=== PATIENT | male | born 1950 | race Caucasian/White ===

== ENCOUNTER 2019-07-01 18:18 | Emergency (ER) | payer MEDICARE ==
[~2019-07-01 18:18] MED LIST: Rocuronium 100 MG/10 ML MDV ONE
[2019-07-01] MEDS ORDERED: Ketamine 500 mg/10 ML MDV IM ONE (18:30)
[2019-07-01] MEDS ORDERED: propofoL 100 ML IV SCH (18:30)
[2019-07-01] MEDS ORDERED: Etomidate 2 MG/ML 20 ML SDV IVPUSH ONE (18:30)
[2019-07-01] MEDS ORDERED: Sodium Chloride 0.9% 1,000 ML IV ONE (18:41)
--- NOTE | 2019-07-01 18:57 | CR ---
Chest: Portable supine view of the chest was obtained. Comparison: Prior chest x-ray of 01/25/15. Heart size and mediastinum are normal. Endotracheal tube is seen. Tip lies at the lower level of the clavicles. Lungs show no acute parenchymal change. Deformity from old healed left clavicle fracture is noted. Impression: 1. Tip of endotracheal tube at the level of the lower clavicles. 2. Nothing acute is otherwise seen on portable chest x-ray. Diagnostic code #2 Study was dictated in [place] Standard Time
[2019-07-01 19:15] LABS: BLOOD UREA NITROGEN,BUN 20 mg/dL (7.0-18.0); CARBON DIOXIDE,CO2 8.7 mmol/L (21.0-32.0); CHLORIDE,CL 103 mmol/L (98-107); GLUCOSE RANDOM 182 mg/dL (74-106); POTASSIUM,K 4.1 mmol/L (3.5-5.1); SODIUM,NA 143 mmol/L (136-148)
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
[2019-07-01 21:20] VITALS: BP 131/70; PULSE 122
[2019-07-01] MEDS ORDERED: Sodium Chloride 0.9% 10 ML Syringe FLUSH PRN (21:51)
[2019-07-01] MEDS ORDERED: Sodium Chloride 0.9% 10 ML SDV IV PRN (21:51)
[2019-07-01] MEDS ORDERED: Sodium Chloride 0.9% 2.5 ML Syringe FLUSH PRN (21:51)
== END 2019-07-01 22:21 | disposition other institution (70) ==
LOC: MW.ED 18:31
DX: R41.82 Altered mental status, unspecified (principal); I10 Essential (primary) hypertension; E78.00 Pure hypercholesterolemia, unspecified; E66.9 Obesity, unspecified; Z79.899 Other long term (current) drug therapy; Z79.82 Long term (current) use of aspirin; Z91.030 Bee allergy status
CPT/HCPCS: 31500; 36415; 43752; 51702; 71045; 80053; 80305; 80307; 81001; 84443; 84484; 85025; 85610; 85730; 93005; 99291; G0390; J0330; J3490; J7030

== ENCOUNTER 2019-07-09 22:52 | Emergency (ER) | payer MEDICARE ==
[2019-07-09 23:05] VITALS: BP 123/64; PULSE 88
--- NOTE | 2019-07-09 23:31 | EDM.PDOC ---
ED HPI GENERAL MEDICAL PROBLEM - General Chief Complaint: Skin Complaint Stated Complaint: rash Time Seen by Provider: 07/09/19 23:27 Source of Information: Reports: Patient History Limitations: Reports: No Limitations - History of Present Illness INITIAL COMMENTS - FREE TEXT/NARRATIVE: Patient states he started taking Augmentin first dose yesterday and develop a rash. And does not know why patient has no other complaints. Patient has no previous allergies. Patient taken any other medications Onset: Today Location: Reports: Back Severity: Mild Improves with: Reports: None Worsens with: Reports: None Associated Symptoms: Reports: No Other Symptoms - Related Data Allergies Allergy/AdvReac Type Severity Reaction Status Date / Time bee stings Allergy Airway Uncoded 01/25/15 10:21 Tightness Home Meds: Home Meds Metoprolol Succinate [Toprol XL] 50 mg PO DAILY 01/25/15 [History] Aspirin [[place] Aspirin] 81 mg PO DAILY 06/11/15 [History] Multivitamin [Multivitamins] 1 tab PO DAILY 06/11/15 [History] Past Medical History HEENT History: Other HEENT History: wears glasses, top and bottom dentures Cardiovascular History: Reports: High Cholesterol, Hypertension Respiratory History: Reports: None Gastrointestinal History: Genitourinary History: Reports: Renal Calculus Other Musculoskeletal History: neck pain Neurological History: Reports: None Psychiatric History: Reports: Depression Endocrine/Metabolic History: Reports: Obesity/BMI 30+ Hematologic History: Reports: None Immunologic History: Reports: None Oncologic (Cancer) History: Reports: None Dermatologic History: Reports: None - Infectious Disease History Infectious Disease History: Reports: None - Past Surgical History Head Surgeries/Procedures: Reports: None Musculoskeletal Surgical History: Reports: Arthroscopic Knee Social & Family History - Family History Family Medical History: Noncontributory - Tobacco Use Smoking Status *Q: Former Smoker Used Tobacco, but Quit: Yes Month/Year Tobacco Last Used: 2014 - Caffeine Use Caffeine Use: Reports: Coffee - Recreational Drug Use Recreational Drug Use: Yes Recreational Drug Type: Reports: Marijuana/Hashish Recreational Drug Use Frequency: Weekly ED ROS GENERAL - Review of Systems Review Of Systems: See Below Constitutional: Reports: No Symptoms HEENT: Reports: No Symptoms Respiratory: Reports: No Symptoms Cardiovascular: Reports: No Symptoms Endocrine: Reports: No Symptoms GI/Abdominal: Reports: No Symptoms : Reports: No Symptoms Musculoskeletal: Reports: No Symptoms Skin: Reports: Rash Neurological: Reports: No Symptoms Psychiatric: Reports: No Symptoms Hematologic/Lymphatic: Reports: No Symptoms Immunologic: Reports: No Symptoms ED EXAM, SKIN/RASH Exam: See Below Text/Narrative:: Patient has a macular papular rash on the his back. Red reticulocyte. Patient has no other problems. His lungs are clear no evidence of anaphylaxis. Exam Limited By: No Limitations General Appearance: Alert, WD/WN, No Apparent Distress Eye Exam: Bilateral Eye: Normal Fundi, Normal Inspection, Nystagmus Ears: Normal External Exam Nose: Normal Inspection Throat/Mouth: Normal Inspection Head: Atraumatic, Normocephalic Neck: Normal Inspection Respiratory/Chest: No Respiratory Distress Cardiovascular: Normal Peripheral Pulses GI/Abdominal: Normal Bowel Sounds (Male) Exam: Deferred Rectal (Males) Exam: Deferred Back Exam: Normal Inspection, Other (Multiple areas of rash and redness) Extremities: Normal Inspection Neurological: Alert, Oriented Skin: Warm, Dry, Erythema, Rash Location, Skin: Back Characteristics: Papular Lymphatic: No Adenopathy Course - Vital Signs Text/Narrative:: 68-year-old gentleman history of taking Augmentin today developed rash to his back today patient is taken no other medication. Patient has no evidence of anaphylaxis lungs are clear he is in no distress patient will be charged home started on Benadryl and prednisone and instructed to follow-up with his primary care physician within 5 days or to return to emergency room if symptoms persist or get worse Last Recorded V/S: Last Vital Signs Temp 97.3 F 07/09/19 23:01 Pulse 88 07/09/19 23:01 Resp 17 07/09/19 23:01 BP 123/64 07/09/19 23:01 Pulse Ox 96 07/09/19 23:01 - Orders/Labs/Meds Orders: Active Orders 24 hr Category Date Time Status diphenhydrAMINE [Benadryl] Med 07/09/19 23:33 Once 50 mg PO ONETIME ONE predniSONE Med 07/09/19 23:33 Once 40 mg PO ONETIME ONE Medication Orders Diphenhydramine HCl (Benadryl) 50 mg PO ONETIME ONE Stop: 07/09/19 23:34 Prednisone (Prednisone) 40 mg PO ONETIME ONE Stop: 07/09/19 23:34 Meds: Medications Generic Name Dose Route Start Last Admin Trade Name Dinorah PRN Reason Stop Dose Admin Diphenhydramine HCl 50 mg 07/09/19 23:33 Benadryl PO 07/09/19 23:34 ONETIME ONE Prednisone 40 mg 07/09/19 23:33 Prednisone PO 07/09/19 23:34 ONETIME ONE Departure - Departure Time of Disposition: 23:35 Disposition: Home, Self-Care 01 Condition: Good Clinical Impression: Drug allergy, antibiotic - Discharge Information Instructions: Allergies, Adult, [id number] Referrals: Ame Almanzar PA [Primary Care Provider] - Forms: ED Department Discharge Additional Instructions: The patient needs to follow-up with his primary care doctor within the next 5 days. Patient is to return to the emergency room for shortness of breath chest pain and/or worsening of symptoms. Patient is to stop taking penicillin / Augmentin Sepsis Event Note - Evaluation Sepsis Screening Result: No Definite Risk - Focused Exam Vital Signs: Vital Signs Temp Pulse Resp BP Pulse Ox 07/09/19 23:01 97.3 F 88 17 123/64 96 Date Exam was Performed: 07/09/19 Time Exam was Performed: 23:34 - My Orders Last 24 Hours: My Active Orders 07/09/19 23:33 diphenhydrAMINE [Benadryl] 50 mg PO ONETIME ONE predniSONE 40 mg PO ONETIME ONE - Assessment/Plan Last 24 Hours: My Active Orders 07/09/19 23:33 diphenhydrAMINE [Benadryl] 50 mg PO ONETIME ONE predniSONE 40 mg PO ONETIME ONE
[2019-07-09] MEDS ORDERED: diphenhydrAMINE 50 MG Cap PO ONE (23:33)
[2019-07-09] MEDS ORDERED: predniSONE 20 MG Tab PO ONE (23:33)
== END 2019-07-10 00:07 | disposition home or self-care (01) ==
LOC: MW.ED 22:52
DX: R21 Rash and other nonspecific skin eruption (principal); T36.95XA Adverse effect of unspecified systemic antibiotic, initial encounter; I10 Essential (primary) hypertension; E78.00 Pure hypercholesterolemia, unspecified; F32.9 Major depressive disorder, single episode, unspecified; E66.9 Obesity, unspecified; Z68.31 Body mass index [BMI] 31.0-31.9, adult; Z87.891 Personal history of nicotine dependence; Z91.030 Bee allergy status; Z79.82 Long term (current) use of aspirin; Z79.899 Other long term (current) drug therapy
CPT/HCPCS: 99282; A9270